=== PATIENT | female | born 1985 | race Two or more races ===

== ENCOUNTER 2022-09-17 11:50 | Outpatient (CLI) | payer MEDICAID | END 2022-09-17 23:59 | disposition home or self-care (01) | LOC: LAB 11:50 | PROVIDERS: ATTEND Physician Assistant | DX: M17.12 Unilateral primary osteoarthritis, left knee (principal); M25.762 Osteophyte, left knee; M25.862 Other specified joint disorders, left knee; M25.562 Pain in left knee | CPT/HCPCS: 73564 ==

== ENCOUNTER 2022-10-16 09:25 | Outpatient (CLI) | payer MEDICAID | END 2022-10-16 23:59 | disposition home or self-care (01) | LOC: RAD 09:25 | PROVIDERS: ATTEND Physician Assistant | DX: R41.0 Disorientation, unspecified (principal) | CPT/HCPCS: 95819 ==